=== PATIENT | male | born 1945 | race Caucasian/White ===

== ENCOUNTER 2017-10-16 02:15 | Observation (INO) | payer MEDICARE, BC ==
[2017-10-16 03:29] LABS: EGFR Non-African American 5.9 (>60)
[2017-10-16 03:34] LABS: ABS Basophils 0.1 10^3/ul (0-0.2); ABS Eosinophils 0.4 10^3/ul (0-0.6); ABS Lymphocytes 0.6 10^3/ul (1.0-4.8); ABS Monocytes 1.1 10^3/ul (0-0.8); ABS Neutrophils 5.1 10^3/ul (1.5-7.7); Hematocrit 19 % (42-52); Hemoglobin 6.5 g/dl (14.0-18.0); Mean Corpuscular HGB Conc 34 g/dl (31-36); Mean Corpuscular Hemoglobin 37 pg (27-31); Mean Corpuscular Volume 107 fL (80-94); Mean Platelet Volume 8.1 um3 (7.4-10.4); Platelet Count 262 10^3/ul (150-450); Red Blood Count 1.77 10^6/ul (4.00-5.40); Red Cell Distribution Width 15 % (10.5-15); White Blood Count 7.2 10^3/ul (3.5-10.8)
[2017-10-16] MEDS ORDERED: Iodixanol* (CONTRAST) 320 MG/ML 100 ML SDV IV ONE (03:57)
[2017-10-16 04:22] LABS: ABS Nucleated RBC 0 10^3/ul; Eosinophil % 5.6 % (0-6); Lymphocyte % 8.3 % (25-47); Nucleated Red Blood Cells % 0
--- NOTE | 2017-10-16 07:28 | ED ---
Ruben Lynne Gabriel, scribed for Bentley Go MD on 10/16/17 at 0229 . Shortness of Breath - HPI Summary HPI Summary: This patient is a 71 year old M presenting to [facility] with a chief complaint of SOB that began 3 days ago. The patient rates the pain 0/10 in severity. Symptoms aggravated by exertion. Patient reports light headedness (that developed after the SOB), tingling in LE, and orthopnea. Patient denies CP and cough. Pt states he saw a doctor who heard rumbling in his lungs and that he was 82% on room air. He received CXR and given abx for PNA from the ED x 3 days ago. Pt states symptoms not improved with treatment. - History of Current Complaint Chief Complaint: EDShortnessOfBreath Time Seen by Provider: 10/16/17 02:26 Hx Obtained From: Patient Onset/Duration: Lasting Days, Still Present Timing: Constant Current Severity: Mild Dyspnea At: Exertion Aggrevating Factors: Movement Associated Signs & Symptoms: Negative - cp and cough - Allergy/Home Medications Allergies/Adverse Reactions: Allergies Allergy/AdvReac Type Severity Reaction Status Date / Time allopurinol Allergy flu like Verified 10/16/17 02:21 s/s Home Medications: Home Medications Aspirin 81 mg CHEW TAB* [Aspirin Low Dose TAB*] 81 mg PO DAILY 10/16/17 [ History Confirmed 10/16/17] Azithromycin [Azithromycin] 1 tab PO DAILY 10/16/17 [History Confirmed 10/16/17] Cholecalciferol (Vitamin D3) [Vitamin D3] 2,000 unit PO DAILY 10/16/17 [History Confirmed 10/16/17] Clopidogrel TAB* [Plavix TAB*] 75 mg PO DAILY 10/16/17 [History Confirmed ] Doxycycline Hyclate [Morgidox [id number]] 100 mg PO BID 10/16/17 [History Confirmed 10/16/17] Folic Acid/B Cplx/C/Selen/Zinc [Dialyvite 3000] 1 tab PO DAILY 10/16/17 [ History Confirmed 10/16/17] Hydralazine HCl 50 mg PO BID 10/16/17 [History Confirmed 10/16/17] Pantoprazole Sodium 1 tab PO DAILY 10/16/17 [History Confirmed 10/16/17] amLODIPine TAB* [Norvasc 5 mg TAB*] 1 tab PO BID 10/16/17 [History Confirmed ] PMH/Surg Hx/FS Hx/Imm Hx Endocrine/Hematology History: Denies: Hx Anemia Cardiovascular History: Reports: Hx Coronary Artery Disease Denies: Hx Hypertension Respiratory History: Reports: Other Respiratory Problems/Disorders - HX OF URI History: Reports: Hx Chronic Renal Failure Musculoskeletal History: Denies: Hx Arthritis, Hx Rheumatoid Arthritis Neurological History: Denies: Hx CVA, Hx Headaches - Surgical History Surgery Procedure, Year, and Place: not on affected area- THORACENTESIS Infectious Disease History: No Infectious Disease History: Denies: Traveled Outside the [place] in Last 30 Days - Family History Known Family History: Positive: Cardiac Disease, Hypertension - Social History Alcohol Use: Rare Substance Use Type: Reports: Marijuana Substance Use Comment - Amount & Last Used: RARE USE Smoking Status (MU): Former Smoker Review of Systems Negative: Chest Pain Positive: Shortness Of Breath, Other - orthopnea . Negative: Cough Neurological: Other - light headedness Positive: Paresthesia - LE All Other Systems Reviewed And Are Negative: Yes Physical Exam - Summary Physical Exam Summary: Appearance: Well-appearing, no distress, Well-nourished Skin: Warm, color reflects adequate perfusion Head: Normal Head/Face inspection Eyes: EOMI, PERRLA ENT: Normal inspection Neck: Supple, no adenopathy, no JVD. Respiratory: Lungs clear, Normal breath sounds, no respiratory distress Cardio: RRR, 2/6 murmur , pulses normal, brisk capillary refill, LUE shunt which has positive thrill Abdomen: soft, nontender, no guarding, no rebound Bowel sounds: present Musculoskeletal: Strength Intact/ ROM intact. No calf tenderness. No edema. Neuro: Alert, muscle tone normal, sensory/motor intact Psychological: Normal Triage Information Reviewed: Yes Vital Signs On Initial Exam: Initial Vitals Temp Pulse Resp BP Pulse Ox 97.9 F 72 20 151/80 96 10/16/17 02:17 10/16/17 02:17 10/16/17 02:17 10/16/17 02:17 10/16/17 02:17 Vital Signs Reviewed: Yes Diagnostics - Vital Signs Vital Signs Temp Pulse Resp BP Pulse Ox 10/16/17 02:17 97.9 F 72 20 151/80 96 - Laboratory Lab Results: Lab Results 10/16/17 10/16/17 10/16/17 Range/Units 02:54 02:54 02:54 WBC 7.2 (3.5-10.8) 10^3/ul RBC 1.77 L (4.00-5.40) 10^6/ul Hgb 6.5 L (14.0-18.0) g/dl Hct 19 L (42-52) % MCV 107 H (80-94) fL MCH 37 H (27-31) pg MCHC 34 (31-36) g/dl RDW 15 (10.5-15) % Plt Count 262 (150-450) 10^3/ul MPV 8.1 (7.4-10.4) um3 Neut % (Auto) 70.7 (38-83) % Lymph % (Auto) 8.3 L (25-47) % [place] % (Auto) 14.7 H (0-7) % Eos % (Auto) 5.6 (0-6) % Baso % (Auto) 0.7 (0-2) % Absolute Neuts (auto) 5.1 (1.5-7.7) 10^3/ul Absolute Lymphs (auto) 0.6 L (1.0-4.8) 10^3/ul Absolute Monos (auto) 1.1 H (0-0.8) 10^3/ul Absolute Eos (auto) 0.4 (0-0.6) 10^3/ul Absolute Basos (auto) 0.1 (0-0.2) 10^3/ul Absolute Nucleated RBC 0 10^3/ul Nucleated RBC % 0 Sodium 139 (135-145) mmol/L Potassium 4.0 (3.5-5.0) mmol/L Chloride 97 L (101-111) mmol/L Carbon Dioxide 28 (22-32) mmol/L Anion Gap 14 H (2-11) mmol/L BUN 61 H (6-24) mg/dL Creatinine 8.84 H (0.67-1.17) mg/dL Est GFR ( Amer) 7.6 (>60) Est GFR (Non-Af Amer) 5.9 (>60) BUN/Creatinine Ratio 6.9 L (8-20) Glucose 95 (70-100) mg/dL Calcium 9.7 (8.6-10.3) mg/dL Total Bilirubin 0.80 (0.2-1.0) mg/dL AST 26 (13-39) U/L ALT 29 (7-52) U/L Alkaline Phosphatase 62 (34-104) U/L Troponin I 0.11 H* (<0.04) ng/mL B-Natriuretic Peptide 4235 H ( - 100) pg/mL Total Protein 6.7 (6.4-8.9) g/dL Albumin 3.8 (3.2-5.2) g/dL Globulin 2.9 (2-4) g/dL Albumin/Globulin Ratio 1.3 (1-3) Result Diagrams: 10/16/17 02:54 10/16/17 02:54 Lab Statement: Any lab studies that have been ordered have been reviewed, and results considered in the medical decision making process. - CT CTA CT Interpretation Completed By: Radiologist - no evidence for acute pathology. Dr Go has revieweed this report. - EKG 0241 Cardiac Rate: NL EKG Rhythm: Sinus Rhythm - at 64 BPM EKG Interpretation: nml axis, nml intervals, no ST/T changes Re-Evaluation - Re-Evaluation First Eval Re-Evaluation Time: 04:49 Change: Improved Comment: Pt resting comfortably in bed. Pt continues to have hypoxia to 83-87% on RA; pt with no respiratory distress. Pt placed on 2L O2 with improvement in O2 sats to 94%. Awaiting CTA results. Course/Dx - Course Course Of Treatment: Pt with symptomatric anemia with O2 sat 87-885 on RA. Pt with no evidence of volume overload. Plan to transfuse 1Unit PRBC's. pt resting comfortably in bed on 2L NC. Spoke with hospitalists, with plans for admission. - Diagnoses Differential Diagnosis/HQI/PQRI: Positive: Airway Obstruction, Asthma, Bronchitis, CHF, COPD Exacerbation, [place], Pneumonia, Pneumothorax, Pulmonary Embolism, Pulmonary Edema, Unstable Angina Provider Diagnoses: Symptomatic anemia, ESRD (end stage renal disease) - Physician Notifications Discussed Care of Patient With: Milvia Reardon - Plan for admission Instructed by Provider To: Admit As Inpatient Discharge - Sign-Out/Discharge Documenting (check all that apply): Discharge/Admit/Transfer - Discharge Plan Condition: Stable Disposition: ADMITTED TO [facility] Referrals: Kay Orlando MD [Primary Care Provider] - - Billing Disposition and Condition Condition: STABLE Disposition: Admitted to [facility] The documentation as recorded by the Ruben gary Gabriel accurately reflects the service I personally performed and the decisions made by , Bentley Go MD.
--- NOTE | 2017-10-16 07:53 | RAD ---
HISTORY: SOB COMPARISONS: November 15, 2016 TECHNIQUE: Multiple contiguous axial CT scans of the chest were obtained after the administration of nonionic intravenous contrast, timed to the pulmonary arterial phase of contrast enhancement.. Coronal and sagittal multiplanar reformations are also submitted for review. FINDINGS: Evaluation is limited by suboptimal contrast opacification. The attenuation of the main pulmonary artery is between 200-250 Hounsfield units which is of borderline, but diagnostic, quality for the evaluation of pulmonary embolism. NECK AND THYROID: The lower neck and thyroid are unremarkable. CHEST WALL: There is no lower cervical, axillary, or supraclavicular lymphadenopathy by size criteria. HEART AND PERICARDIUM: The heart is unremarkable. AORTA AND PULMONARY VASCULATURE: There is no pulmonary arterial filling defect to suggest pulmonary embolism. There is no linear filling defect within the aorta to suggest aortic dissection. MEDIASTINUM: There is no mediastinal lymphadenopathy by size criteria. TARIK: There is no hilar lymphadenopathy by size criteria. AIRWAY AND ESOPHAGUS: The airway is unremarkable, without endobronchial filling defect. The esophagus is grossly normal. LUNG PARENCHYMA: There is dependent atelectasis bilaterally. PLEURA: No pleural abnormalities are noted. UPPER ABDOMEN: The upper abdomen is unremarkable. BONES AND SOFT TISSUES: Mild degenerative changes are noted. OTHER: None. IMPRESSION: NO PULMONARY ARTERIAL FILLING DEFECT TO SUGGEST PULMONARY EMBOLISM.
[2017-10-16] MEDS ORDERED: Al Hydrox/Mg Hydrox/Simet LIQ* 30 ML UDC PO PRN (08:34)
[2017-10-16] MEDS ORDERED: Acetaminophen TAB* 325 MG PO PRN (08:34)
[2017-10-16] MEDS: Clopidogrel TAB* 75 MG PO SCH (10:16)
[2017-10-16] MEDS: amLODIPine TAB* 5 MG PO SCH ×2 (10:16→20:42)
[2017-10-16] MEDS: DOXYcycline CAP(*) 100 MG PO SCH ×2 (10:17→20:42)
[2017-10-16] MEDS: Levothyroxine TAB* 100 MCG TAB PO SCH (10:17)
[2017-10-16] MEDS: Docusate CAP* 100 MG PO SCH ×2 (10:18→20:42)
[2017-10-16] MEDS: Aspirin 81 mg CHEW TAB* 81 MG TAB.CHEW PO SCH (10:18)
[2017-10-16] MEDS: hydrALAZINE TAB* 25 MG PO SCH ×2 (10:20→20:42)
[2017-10-16] MEDS: Finasteride TAB* 5 MG PO SCH (10:20)
--- NOTE | 2017-10-16 13:40 | HP ---
CC: Dr. Isaacs; Dr. Lloyd.* HISTORY AND PHYSICAL: DATE OF ADMISSION: 10/16/17 PRIMARY CARE PROVIDER: Dr. Isaacs. CHIEF COMPLAINT: Shortness of breath. HISTORY OF PRESENT ILLNESS: Myles hCu is a 71-year-old male who started experiencing shortness of breath after his dialysis 3 days ago. He has history of endstage renal disease, on dialysis and his last dialysis at the hospital facility was 3 days ago. Yesterday, he had his first dialysis with his home machine. It is also hemodialysis. He stated that on the day prior to experiencing shortness of breath, he had a temperature of 100 degrees. He went to see his primary care provider and apparently on the x-ray, it showed the patient had a pneumonia. He was started on azithromycin and doxycycline. Apart from the experience of shortness of breath, the patient denies any cough. He continued to be short of breath and he came into the ED for evaluation today. Here, he is noted to have a hemoglobin of 6. The patient stated that he has history of anemia that would "come and go." He does not remember what his last hemoglobin was, but he stated that he uses Epogen and used it in [place] when he was dialyzed. The patient spends dupont in [place] and he came back to our area for the summer just 2 weeks ago. In July 2017, the patient had cardiac catheterization for risk stratification for possibility of renal transplant. The patient stated at that point he was asymptomatic of chest pain or shortness of breath, but the cardiac catheterization showed "blockage" and the patient received a stent, and was in a hospital in [place] in [place] in July 2017. Ever since then, he was placed on aspirin and Plavix. He has not noted black stools or bloody stools. The patient is going to be placed on overnight observation with a diagnosis of symptomatic anemia. PAST MEDICAL HISTORY: 1. History of nephrotic syndrome and subsequent development of endstage renal disease, on hemodialysis that started a little bit over 3 years ago. Yesterday was his first treatment of hemodialysis at home. He has a fistula placed in the left forearm. 2. History of hypothyroidism. 3. Hypertension. 4. Coronary artery disease. As mentioned above, stent in July 2017. 5. Dyslipidemia. 6. BPH. 7. Vasectomy. CURRENT MEDICATIONS: Include, 1. Aspirin 81 mg daily. 2. Plavix 75 mg daily. 3. Protonix 40 mg daily. 4. Hydralazine 25 mg 3 times a day. 5. Azithromycin tablet daily for 1 more day and then stop. 6. Hydralazine 50 mg twice a day. 7. Dialyvite 1 tablet daily. 8. Doxycycline 100 mg b.i.d. 9. Levothyroxine 100 mcg daily. 10. Amlodipine 5 mg daily. 11. Lisinopril 40 mg daily. 12. Proscar 5 mg daily. 13. Vitamin D3 at 2000 units daily. 14. Renvela 2400 mg 3 times a day with meals. ALLERGIES: ALLOPURINOL causes muscle aches. FAMILY HISTORY: Positive for father who of CVA in his 80s. Mother who at 95 of old age. SOCIAL HISTORY: The patient is a retired [employer] teacher. He lives alone. He still manages rental properties in the area. He spends dupont in [place]. His surrogate would be his friend, Cecy Partida. Cecy's phone number is [phone]. REVIEW OF SYSTEMS: Please see history of present illness. All the remaining 12 systems were reviewed with the patient and were otherwise negative. PHYSICAL EXAMINATION GENERAL: The patient is a very pleasant 71-year-old male, who is in no acute distress. Alert, awake and oriented x3. VITAL SIGNS: Blood pressure of 148/85, heart rate of 68 and regular, respiratory rate 16, oxygen saturation 92% on 2 L of oxygen nasal cannula, temperature of 97.9. HEENT: Head is atraumatic, normocephalic. Eyes: Pupils are equal and reactive to light and accommodation. Oropharynx clear. Mucosa is moist. NECK: Supple. No JVD. No bruits bilaterally. RESPIRATORY: Clear to auscultation bilaterally. CARDIOVASCULAR: Regular rate and rhythm with 2/6 systolic ejection murmur noted on auscultation of the apex. ABDOMEN: Soft, nontender. Bowel sounds present in all 4 quadrants. EXTREMITIES: There is no edema. Pulses are +2 bilaterally. No clubbing or cyanosis. There is a dialysis fistula present in the left forearm. Positive thrill. NEUROLOGIC: Speech is clear. Cranial nerves II through XII are grossly intact. Motor strength is 5/5 bilaterally. SKIN: On evaluation of the skin, no ecchymotic areas or rashes noted. DIAGNOSTIC STUDIES/LAB DATA: Shows sodium of 139, potassium 4.0, chloride 97, carbon dioxide 28, BUN 61, creatinine 8.8. Liver functions are unremarkable. Troponin of 0.11. Brain natriuretic peptide was 4235. CBC: White blood cell count of 7.2, hemoglobin 6.5, hematocrit of 19, MCV of 107 and platelets of 262. CT angiogram of the chest obtained in the emergency department: Impression: "No pulmonary arterial filling defect to suggest pulmonary embolism." Further on in the body of the report, there was no infiltrate noted. There were dependent atelectasis bilaterally. The patient's EKG shows normal sinus rhythm with a heart rate of 64 beats per minute with 1 PAC and voltage criteria for LVH. ASSESSMENT AND PLAN: 1. Symptomatic anemia in patient with a history of anemia. The patient's hemoglobin last reported at our facility was in 2013 and was 7. The patient had received Epogen in the recent past. At this point, it is likely that his anemia is a chronic progression of his condition of anemia of chronic disease due to endstage renal disease. Nevertheless, the patient just was placed on aspirin and Plavix over the past couple of months. Although he does not report any melanotic or bloody stools, we will obtain a stool Hemoccult and perform iron studies. His anemia is significantly macrocytic and vitamin B12 and folate levels are going to be obtained. The patient is going to be transfused 1 unit of packed red blood cells and that was already ordered in the emergency department. 2. In regards to the patient's shortness of breath and elevated troponin, it is likely that his troponin elevation is due to endstage renal disease and demand ischemia. Nevertheless, the patient has voltage criteria for left ventricular hypertrophy and heart murmur that he was not aware of in the past. I will obtain a transthoracic echocardiogram and follow the patient with radiation monitor in the bed. I will also follow up with his troponins. 3. In regards to endstage renal disease. I am going to call Dr. Lloyd and ask for recommendations on when dialysis needs to be started again. 4. For the patient's hypertension, his outpatient medications including lisinopril, hydralazine as well as Norvasc are going to be continued. 5. For DVT prophylaxis, the patient is going to be placed on SCDs and continued on aspirin and Plavix. I am not going to give him pharmacologic prophylaxis until his stool is heme-negative and gastrointestinal bleed is ruled out. 6. The patient's code status is full and his surrogate is his friend, Cecy, as mentioned above. TIME SPENT: Approximately 75 minutes was spent on admission of this patient, more than half that time was spent [id number] with the patient doing the interview and physical exam. [id number]/[facility] #: [id number] MTDColleen
[2017-10-16] MEDS: SEVELAMER 800 MG PO SCH ×2 (14:22→18:49)
[2017-10-16] MEDS: CMCS - Pantoprazole TAB (NF) 40 MG TAB PO SCH (15:37)
[2017-10-16 15:55] LABS: Hematocrit 24 % (42-52); Hemoglobin 8.2 g/dl (14.0-18.0)
[2017-10-16] MEDS: Lisinopril TAB* 10 MG PO SCH ×2 (18:48→20:40)
[2017-10-16] MEDS: Melatonin 3 MG TAB PO SCH ×2 (20:41→22:00)
[2017-10-16] MEDS ORDERED: Melatonin 3 MG TAB PO SCH (21:00)
[2017-10-17 05:40] LABS: Hematocrit 25 % (42-52); Hemoglobin 8.7 g/dl (14.0-18.0); Mean Corpuscular HGB Conc 35 g/dl (31-36); Mean Corpuscular Hemoglobin 35 pg (27-31); Mean Corpuscular Volume 99 fL (80-94); Mean Platelet Volume 8.1 um3 (7.4-10.4); Platelet Count 278 10^3/ul (150-450); Red Blood Count 2.49 10^6/ul (4.00-5.40); Red Cell Distribution Width 22 % (10.5-15); White Blood Count 10.9 10^3/ul (3.5-10.8)
[2017-10-17 05:44] LABS: ABS Basophils 0.1 10^3/ul (0-0.2); ABS Eosinophils 0.7 10^3/ul (0-0.6); ABS Lymphocytes 0.5 10^3/ul (1.0-4.8); ABS Monocytes 1.4 10^3/ul (0-0.8); ABS Neutrophils 8.3 10^3/ul (1.5-7.7)
[2017-10-17 05:46] LABS: ABS Nucleated RBC 0 10^3/ul; Lymphocyte % 4.6 % (25-47); Nucleated Red Blood Cells % 0.1
[2017-10-17 05:56] LABS: EGFR Non-African American 4.7 (>60)
[2017-10-17] MEDS: Levothyroxine TAB* 100 MCG TAB PO SCH (06:17)
[2017-10-17] MEDS: Docusate CAP* 100 MG PO SCH (08:19)
[2017-10-17] MEDS: DOXYcycline CAP(*) 100 MG PO SCH (08:35)
[2017-10-17] MEDS: amLODIPine TAB* 5 MG PO SCH (08:35)
[2017-10-17] MEDS: SEVELAMER 800 MG PO SCH (08:35)
[2017-10-17] MEDS: hydrALAZINE TAB* 25 MG PO SCH (08:35)
[2017-10-17] MEDS: Clopidogrel TAB* 75 MG PO SCH (08:35)
[2017-10-17] MEDS: Finasteride TAB* 5 MG PO SCH (08:35)
[2017-10-17] MEDS: Aspirin 81 mg CHEW TAB* 81 MG TAB.CHEW PO SCH (08:35)
[2017-10-17] MEDS: CMCS - Pantoprazole TAB (NF) 40 MG TAB PO SCH (08:35)
[2017-10-17] MEDS ORDERED: DIALYVITE PO SCH (09:00)
[2017-10-17 11:50] VITALS: BP 146/78
--- NOTE | 2017-10-17 13:25 | ECHO ---
Patient: ROBERTA REYES Rec#: [id number] : 1945 Date: 10/17/2017 Age: 71y Height: 175.26 cm / 69.0 in Weight: 69.4 kg / 153.0 lbs Sex: M BSA: 1.84 Room#: 446 Admit Date#: 10/16/2017 Type: Inpatient Referring: Milvia Reardon MD Reading: Moises Durbin MD Posting Machine Operator: Roselyn Jules RDCS,RDMS CC: Kay Orlando MD Transthoracic Echocardiogram Indication: Murmur BP: 147/77 HR: 78 Rhythm: NSR Findings History: PCI, ESRD, HTN, HLD, SOB Technical Comments: The study quality is good. Left Ventricle: The left ventricular chamber size is mildly dilated. Mild concentric left ventricular hypertrophy is observed. There is diffuse global hypokinesis of the left ventricle. There is mildly decreased left ventricular systolic function. The estimated ejection fraction is 40-45%. There is no consistent Doppler evidence of clinically significant diastolic dysfunction. Left Atrium: The left atrium is severely dilated. Right Ventricle: The right ventricle wall thickness is mildly increased. The right ventricle is mildly dilated. The right ventricular global systolic function is normal. Right Atrium: The right atrium is moderately dilated. Aortic Valve: The aortic valve is trileaflet. The aortic valve leaflets are mildly thickened. There is aortic annular calcification. There is a trace of aortic regurgitation. There is mild aortic stenosis. The mean gradient of the aortic valve is 14 mmHg. The aortic valve area, by peak velocities, is calculated at 1.3 cm2. Mitral Valve: The mitral valve leaflets are mildly thickened. There is moderate mitral regurgitation. There is no evidence of mitral stenosis. Tricuspid Valve: The tricuspid valve leaflets are normal. There is mild to moderate tricuspid regurgitation. There is evidence of moderate pulmonary hypertension. Pulmonic Valve: The pulmonic valve appears normal. There is a trace pulmonic regurgitation. Pericardium: There is no significant pericardial effusion. Aorta: The aortic root appears normal. There is no dilatation of the aortic arch. Pulmonary Artery: The main pulmonary artery appears normal. Venous: The inferior vena cava is dilated. There is less than 50% respiratory change in the inferior vena cava dimension. Summary: There was not any prior study for comparison. Conclusions Mild concentric left ventricular hypertrophy is observed. There is diffuse global hypokinesis of the left ventricle. There is mildly decreased left ventricular systolic function. The estimated ejection fraction is 40-45%. There is aortic annular calcification. There is mild aortic stenosis. The mean gradient of the aortic valve is 14 mmHg. There is moderate mitral regurgitation. There is mild to moderate tricuspid regurgitation. There is evidence of moderate pulmonary hypertension. There is no significant pericardial effusion. Measurements Name Value Normal Range RVIDd (AP) 2D 4 cm (0.9 - 2.6) RVDdMajor (2D) 3.6 cm (2.2 - 4.4) RAd ISD 4CH 5.9 cm (3.4 - 4.9) RA (A4C)W 4.9 cm (2.9 - 4.6) IVSd (2D) 1.3 cm (0.6 - 1) LVPWd (2D) 1.3 cm (0.6 - 1) LVIDd (2D) 5.5 cm (3.6 - 5.4) LVIDs (2D) 4.6 cm - LV FS (2D) 17 % (25 - 45) Aortic Annulus 2 cm (1.4 - 2.6) Ao root diameter (2D) 3.5 cm (2.1 - 3.5) Ascending Ao 3.3 cm (2.1 - 3.4) Aortic arch 3.3 cm (1.8 - 3.4) LA dimension (AP) 2D 4.8 cm (2.3 - 3.8) LAd ISD 4CH 6 cm (2.9 - 5.3) LA ISD 4CH W 5.3 cm (2.5 - 4.5) Name Value Normal Range LA ESV SP 4CH (A/L) 87.25 ml - LA ESV SP 2CH (A/L) 118.22 ml - LA ESV BP (A/L) 111.32 ml - LA ESV BP (A/L) index 60 ml/m2 - LA ESV SP 4CH (MOD) 79.07 ml - LA ESV SP 2CH (MOD) 104.25 ml - Name Value Normal Range MV E-wave Vmax 0.7 m/sec - MV deceleration time 141 msec - MV A-wave Vmax 0.6 m/sec - MV E:A ratio 1.2 ratio - LV septal e' Vmax 0.07 m/sec - LV lateral e' Vmax 0.09 m/sec - LV E:e' septal ratio 10 ratio - LV E:e' lateral ratio 8 ratio - Name Value Normal Range AV Vmax 26 m/sec - AV VTI 55 cm - AV peak gradient 27 mmHg - AV mean gradient 14 mmHg - LVOT diameter 2 cm - LVOT Vmax 1.1 m/sec - LVOT VTI 23.3 cm - LVOT peak gradient 5 mmHg - LVOT mean gradient 2.4 mmHg - DOI (VTI) 0.4 ratio - MARTINA (continuity Vmax) 1.3 cm2 - MARTINA (continuity VTI) 1.3 cm2 - Name Value Normal Range MR Vmax 5.1 m/sec - MR VTI 173 cm - MR flow (PISA) 126 ml/sec - MR PISA radius 0.7 cm - MR alias Vmax 36 cm/sec - Name Value Normal Range TR Vmax 3.3 m/sec - TR peak gradient 44 mmHg - RAP 8 mmHg - RVSP 52 mmHg - IVC diameter 2.3 cm - Name Value Normal Range PV Vmax 0.8 m/sec - PV peak gradient 2.6 mmHg -
[2017-10-17] MEDS ORDERED: Epoetin Alfa* 10,000 UNITS/ML VIAL IV ONE (14:30)
--- NOTE | 2017-10-18 07:55 | DS ---
CC: Dr. Kay Mccann; Dr. Lloyd * DISCHARGE SUMMARY: DATE OF ADMISSION: 10/16/17 DATE OF DISCHARGE: 10/17/17 PRIMARY CARE PROVIDER: Dr. Kay Mccann. DISCHARGE DIAGNOSES: 1. Shortness of breath and hypoxemia due to combination of fluid overload and anemia. 2. Worsening of anemia in a patient with end-stage renal disease, status post transfusion x1 unit packed red blood cells during the hospital stay. SECONDARY DIAGNOSES: 1. History of coronary artery disease, status post cardiac stenting within the past couple months. 2. History of nephrotic syndrome with subsequent development of end-stage renal disease. The patient currently is doing hemodialysis at home by himself. 3. History of hypothyroidism. 4. Status post left-sided dialysis fistula placement. 5. Hypertension. 6. Dyslipidemia. 7. Benign prostatic hypertrophy. 8. Status post vasectomy. MEDICATIONS AT DISCHARGE: Unchanged and include: 1. Norvasc 5 mg b.i.d. 2. Aspirin 81 mg daily. 3. Vitamin D3 2000 units daily. 4. Plavix 75 mg daily. 5. Proscar 5 mg daily. 6. Dialyvite 1 tablet daily. 7. Hydralazine 25 mg 3 times a day and 50 mg tablets b.i.d. 8. Synthroid 100 mcg daily. 9. Lisinopril 40 mg daily. 10. Protonix 40 mg daily. 11. Renvela 2400 mg 3 times a day with meals. LABORATORY DATA AND STUDIES PERFORMED DURING THE HOSPITAL STAY: Included on , white blood cell count of 10.9, hemoglobin of 8.7, hematocrit of 25, and platelets of 278. Sodium was 139, potassium of 4.7, chloride 97, carbon dioxide 26, BUN 84, creatinine 10.7. The patient's troponin was 0.11 at admission, second troponin 0.09. Brain natriuretic peptide was 4235. Vitamin B12 level was 958, folate above 20. TIBC 213, iron level 85, percent iron saturation 40%, transferrin 152, and ferritin above 1500. CT angiogram of the chest obtained on 10/16/17, impression: "No pulmonary arterial filling defect to suggest pulmonary embolism." STUDIES PENDING AT THE TIME OF DICTATION: Included echocardiogram that was performed and not ready by the time of the patient's discharge. HOSPITALIZATION COURSE: Myles Chu is a 71-year-old male with history of end- stage renal disease, on hemodialysis, who just was set up for home hemodialysis to be performed the first day on 10/15/17. The patient stated that just before his hemodialysis that was set up at home. He had been feeling short of breath for a few days and he was in fact diagnosed with pneumonia as an outpatient and started on azithromycin and doxycycline. Despite continuation of antibiotics, he continued to be short of breath and after his dialysis that was performed on 10/15/17, he came into the hospital on 10/16/17 complaining of shortness of breath with noticeable hypoxemia. He was also noted to have hemoglobin level of 6.5 with his baseline ranging between 7 and 10. The patient had been on Epogen from his program architect. His stool was guaiac negative. The patient was observed on telemetry monitored bed due to his mild elevation of troponin in this patient with end-stage renal disease. Having said that, he never complained of chest pain. His EKG was also unremarkable. He was transfused 1 unit of packed blood cells to hemoglobin of 8.7 by the time of discharge. Despite that that he was transfused and his hemoglobin is back to his baseline 8 , he continues to be markedly hypoxemic and a CT angiogram at admission did not show any marked abnormalities. I suspect he is fluid overloaded. In fact, the patient stated himself that he gained approximately 10 pounds in the past 1 month and he is not sure of what his "dry weight is." At this point, I discussed the case with Dr. Lloyd. The patient is going to have hemodialysis at the hospital prior to discharge and he is going to discuss with his program architect further management of his dialysis and his dry weight. He is also going to be set up with oxygen at discharge due to his hypoxemia. He continues to be on 2 L of oxygen at discharge. He was continued on his doxycycline during his hospital stay and I believe we can discontinue it now. There was no evidence of pneumonia on his CT angiogram. He had a heart murmur on his cardiac evaluation and we obtained a transthoracic echocardiogram, which was pending at the time of dictation. At discharge, the patient is recommended to follow up with his primary care provider in 4 to 7 days. The patient is recommended to follow up with Dr. Lloyd in approximately 1 to 2 weeks. He is to continue his home dialysis as per Dr. Lloyd. PHYSICAL EXAMINATION: Physical exam at discharge is unchanged from admission. [id number] #: [id number] BRODIE
== END 2017-10-17 17:00 | disposition home or self-care (01) ==
LOC: ED 02:15 → MEDTELE 08:34
PROVIDERS: ADMIT Internal Medicine; ATTEND Internal Medicine
DX: E87.70 Fluid overload, unspecified (principal); R06.02 Shortness of breath; R09.02 Hypoxemia; I12.0 Hypertensive chronic kidney disease with stage 5 chronic kidney disease or end stage renal disease; N18.6 End stage renal disease; Z99.2 Dependence on renal dialysis; I25.10 Atherosclerotic heart disease of native coronary artery without angina pectoris; Z95.5 Presence of coronary angioplasty implant and graft; E03.9 Hypothyroidism, unspecified; E78.5 Hyperlipidemia, unspecified; N40.0 Benign prostatic hyperplasia without lower urinary tract symptoms; Z79.82 Long term (current) use of aspirin; Z79.899 Other long term (current) drug therapy; Z88.8 Allergy status to other drugs, medicaments and biological substances; Z79.01 Long term (current) use of anticoagulants; R74.8 Abnormal levels of other serum enzymes; Z87.891 Personal history of nicotine dependence; Z82.49 Family history of ischemic heart disease and other diseases of the circulatory system; R94.31 Abnormal electrocardiogram [ECG] [EKG]; I49.1 Atrial premature depolarization; I51.7 Cardiomegaly; I27.20 Pulmonary hypertension, unspecified
CPT/HCPCS: 36415; 36430; 71275; 80048; 80053; 82272; 82607; 82728; 82746; 83540; 83550; 83880; 84484; 85014; 85018; 85025; 86850; 86900; 86901; 86922; 87641; 90935; 93005; 93306; 99284; A9270-GY; G0378; J0885; P9040; Q9967

== ENCOUNTER 2018-01-13 17:17 | Emergency (ER) | payer MEDICARE, BC ==
--- NOTE | 2018-01-13 18:14 | RAD ---
INDICATION: Right wrist injury. TECHNIQUE: 4 views of the right wrist were obtained. FINDINGS: There is lateral soft tissue swelling. There is a transverse nondisplaced fracture through the proximal diaphysis of the first metacarpal. No other fractures are seen. 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 IMPRESSION: TRANSVERSE NONDISPLACED FRACTURE OF THE FIRST METACARPAL.
[2018-01-13] MEDS ORDERED: Tetan/Diph/Pertus SYR(Tdap)* 0.5 ML SYR(BOOSTRIX) use SYR IM ONE (18:15)
--- NOTE | 2018-01-13 18:16 | RAD ---
INDICATION: Right hand injury. TECHNIQUE: 3 views of the right hand were obtained. FINDINGS: There is lateral and dorsal soft tissue swelling. The bones are normal alignment. There is a transverse nondisplaced fracture through proximal diaphysis of the first metacarpal. No other fractures are seen. IMPRESSION: TRANSVERSE NONDISPLACED FRACTURE OF THE FIRST METACARPAL.
--- NOTE | 2018-01-13 18:18 | ED ---
Upper Extremity Pain - HPI Summary HPI Summary: Patient complains of window falling down and distracted closing on his right hand with 2 subsequent lacerations to right hand. Patient is on Plavix. Bleeding controlled. Denies loss of sensation or function distally. Dialysis patient. History of cardiac stent 1 year ago. Tetanus status unknown. - History of Current Complaint Chief Complaint: EDLacSutureRecheck Stated Complaint: RT HAND INJURY Time Seen by Provider: 01/13/18 17:29 Hx Obtained From: Patient Mechanism Of Injury: Blunt Trauma Onset/Duration: Started Hours Ago - HE Severity Initially: Mild Severity Currently: Mild Pain Location: Wrist, Hand Character: Throbbing Aggravating Factor(s): Movement Alleviating Factor(s): Rest Associated Signs & Symptoms: Positive: Swelling, Bruising - Allergies/Home Medications Allergies/Adverse Reactions: Allergies Allergy/AdvReac Type Severity Reaction Status Date / Time allopurinol Allergy flu like Verified 10/16/17 02:21 s/s Home Medications: Home Medications Atorvastatin* [Lipitor*] 40 mg PO DAILY 01/13/18 [History Confirmed 01/13/18] Ketoconazole 2 % TOPICAL BID 01/13/18 [History Confirmed 01/13/18] Lisinopril 40 mg PO BID 01/13/18 [History Confirmed 01/13/18] MinoXIDil TAB* [Loniten TAB*] 2.5 mg PO BID 01/13/18 [History Confirmed 01/13/18 ] Pantoprazole TAB (NF) [Protonix TAB (NF)] 40 mg PO DAILY 01/13/18 [History Confirmed 01/13/18] amLODIPine TAB* [Norvasc 5 mg TAB*] 5 mg PO BID 01/13/18 [History Confirmed ] hydrALAZINE TAB* [Apresoline TAB*] 50 mg PO DAILY 01/13/18 [History Confirmed ] PMH/Surg Hx/FS Hx/Imm Hx Endocrine/Hematology History: Reports: Hx Anticoagulant Therapy, Hx Blood Transfusions - ADMISSION ON 10/16/17, Hx Thyroid Disease - HYPOTHYROID, Hx Anemia - ADMISSION 10/16/17 Denies: Hx Diabetes Cardiovascular History: Reports: Hx Coronary Artery Disease Denies: Hx Hypertension Respiratory History: Reports: Other Respiratory Problems/Disorders - HX OF URI History: Reports: Hx Chronic Renal Failure, Hx Dialysis, Hx Renal Disease Musculoskeletal History: Denies: Hx Arthritis, Hx Rheumatoid Arthritis Sensory History: Reports: Hx Contacts or Glasses Denies: Hx Hearing Aid Opthamlomology History: Reports: Hx Contacts or Glasses Neurological History: Denies: Hx CVA, Hx Headaches - Surgical History Surgery Procedure, Year, and Place: not on affected area- THORACENTESIS - Immunization History Immunizations Up to Date: Yes Infectious Disease History: No Infectious Disease History: Denies: Traveled Outside the [place] in Last 30 Days - Family History Known Family History: Positive: Cardiac Disease, Hypertension - Social History Alcohol Use: Rare Substance Use Type: Reports: Marijuana Substance Use Comment - Amount & Last Used: RARE USE Smoking Status (MU): Former Smoker Review of Systems Constitutional: Negative Eyes: Negative ENT: Negative Cardiovascular: Negative Respiratory: Negative Gastrointestinal: Negative Genitourinary: Negative Musculoskeletal: Negative Skin: Other Positive: Bruising Neurological: Negative Psychological: Normal All Other Systems Reviewed And Are Negative: Yes Physical Exam - Summary Physical Exam Summary: . Laceration on bilateral base of right hand and medial base of right hand. Normal flexion and extension of all fingers of right hand and right wrist. PMS intact distally Triage Information Reviewed: Yes Vital Signs On Initial Exam: Initial Vitals Temp Pulse Resp BP Pulse Ox 97.6 F 62 16 159/67 96 01/13/18 17:24 01/13/18 17:24 01/13/18 17:24 01/13/18 17:24 01/13/18 17:24 Vital Signs Reviewed: Yes Appearance: Positive: Well-Appearing Skin: Positive: Warm Head/Face: Positive: Normal Head/Face Inspection Eyes: Positive: Normal Neck: Positive: Supple Respiratory/Lung Sounds: Positive: Clear to Auscultation Cardiovascular: Positive: Normal Abdomen Description: Positive: Nontender Musculoskeletal: Positive: Normal Neurological: Positive: Normal Psychiatric: Positive: Normal AVPU Assessment: Alert - [place] Coma Scale Best Eye Response: 4 - Spontaneous Best Motor Response: 6 - Obeys Commands Best Verbal Response: 5 - Oriented Coma Scale Total: 15 Procedures - Splinting 1 Location: right wrist Hand-Made Type: orthoglass Splint: thumb spica Pre-Proc Neuro Vasc Exam: normal Post-Proc Neuro Vasc Exam: normal - Laceration/Wound Repair 1 Location: upper extremity Description: Linear Anesthesia: Local, 1.0% Length, Depth and Shape: 5cm x 0.5cm Betadine Prep?: No - chlorhexidine prep Irrigated w/ Saline (ccs): 500 - saline plus chlorhexidine Laceration/Wound Explored: clean Debridement: minimal Number of Sutures: 6 - 4. 0 Ethilon Layer Closure?: No Sterile Dressing Applied?: No 2 Location: upper extremity Description: Linear Anesthesia: Local, 1.0% Length, Depth and Shape: 2cm x 0.5cm Betadine Prep?: No - Chlorhexidine prep Irrigated w/ Saline (ccs): 40 - saline plus chlorhexidine Laceration/Wound Explored: clean Debridement: minimal Number of Sutures: 3 - 5. 0 Ethilon Layer Closure?: No Sterile Dressing Applied?: No Diagnostics - Vital Signs Vital Signs Temp Pulse Resp BP Pulse Ox 01/13/18 17:24 97.6 F 62 16 159/67 96 - Laboratory Lab Statement: Any lab studies that have been ordered have been reviewed, and results considered in the medical decision making process. Course/Dx - Course Course Of Treatment: Patient complains of window falling down and distracted closing on his right hand with 2 subsequent lacerations to right hand. Patient is on Plavix. Bleeding controlled. Denies loss of sensation or function distally. Dialysis patient. History of cardiac stent 1 year ago. Tetanus status unknown. Tetanus booster given. First metacarpal fracture. Laceration in vicinity of fracture. Discussed patient with Dr. lombardo who reviewed x-ray and picture of laceration and did not believe to be an open fracture. Patient given Ancef 500 mg IM here in the ED Rx for Keflex, Rx for hydrocodone. 2 laceration sutured. Thumb spica splint placed. Follow-up Tuesday morning with orthopedics clinic. Patient understands and agrees with plan. Physical exam: Laceration on bilateral base of right hand and medial base of right hand. Normal flexion and extension of all fingers of right hand and right wrist. PMS intact distally - Diagnoses Provider Diagnoses: First metacarpal bone fracture, Multiple lacerations Discharge - Sign-Out/Discharge Documenting (check all that apply): Patient Departure - Discharge Plan Condition: Stable Disposition: HOME Prescriptions: Cephalexin CAP* [Keflex CAP*] 500 mg PO TID 10 Days #30 cap HYDROcodone/ACETAMIN 5-325 MG* [[place] 5-325 TAB*] 1 tab PO Q6H PRN 2 Days #6 tab MDD 4 tabs PRN Reason: Pain Patient Education Materials: Care For Your Stitches (ED), Laceration (ED), Thumb Fracture (ED) Referrals: Kay Orlando MD [Primary Care Provider] - Crow Dos Santos MD [Medical Doctor] - Additional Instructions: Follow-up with orthopedics Dr. Dos Santos for hand fracture. Call orthopedics clinic Tuesday to arrange appointment. Sutures come out in 10 days. Take antibiotics as directed. Return to the ED for any new or worsening symptoms - Billing Disposition and Condition Condition: STABLE Disposition: Home
[2018-01-13] MEDS ORDERED: Acetaminophen TAB* 325 MG ONE (19:40)
[2018-01-13] MEDS ORDERED: Acetaminophen TAB* 325 MG PO ONE (19:54)
[2018-01-13] MEDS ORDERED: ceFAZolin 500 MG VIAL(*) 500 MG VIAL IM ONE (20:41)
[2018-01-13 22:51] VITALS: BP 154/79
== END 2018-01-13 22:50 | disposition home or self-care (01) ==
LOC: ED 17:17
DX: S61.411A Laceration without foreign body of right hand, initial encounter (principal); S62.291A Other fracture of first metacarpal bone, right hand, initial encounter for closed fracture; W22.8XXA Striking against or struck by other objects, initial encounter; Y92.9 Unspecified place or not applicable; N18.9 Chronic kidney disease, unspecified; Z23 Encounter for immunization; Z79.02 Long term (current) use of antithrombotics/antiplatelets; Z95.5 Presence of coronary angioplasty implant and graft; Z99.2 Dependence on renal dialysis; Z87.891 Personal history of nicotine dependence; Z88.8 Allergy status to other drugs, medicaments and biological substances
CPT/HCPCS: 12002; 90471; 90715; 96372; 99282; A9270-GY; J0690